=== PATIENT | male | born 1935 | race Caucasian/White ===

== ENCOUNTER 2020-05-02 16:28 | Emergency (ER) | payer MEDICARE, OTHER ==
--- NOTE | 2020-05-02 17:55 | RAD ---
LEFT MIDDLE FINGER THREE VIEWS: 05/02/20 HISTORY: Middle finger laceration. Arthritic changes are present. No fracture or radiopaque foreign bodies. IMPRESSION: No evidence of fracture. POS: OFF
[2020-05-02] MEDS ORDERED: Lidocaine 1% (PF) 30 ML VIAL ONE (17:58)
[2020-05-02] MEDS ORDERED: Bacitracin 1 PK ONE (18:49)
== END 2020-05-02 18:50 | disposition home or self-care (01) ==
LOC: ERS 16:28
DX: S61.213A Laceration without foreign body of left middle finger without damage to nail, initial encounter (principal); I10 Essential (primary) hypertension; E78.00 Pure hypercholesterolemia, unspecified; E10.9 Type 1 diabetes mellitus without complications; Z79.899 Other long term (current) drug therapy; Z79.82 Long term (current) use of aspirin; Z79.84 Long term (current) use of oral hypoglycemic drugs; W23.0XXA Caught, crushed, jammed, or pinched between moving objects, initial encounter
CPT/HCPCS: 12001; J2001

== ENCOUNTER 2022-04-17 14:18 | Inpatient (IN) | payer MEDICARE ==
[~2022-04-17 14:18] MED LIST: Iopamidol-370 76% 500 ML 1 ML ONE
[2022-04-17 15:03] LABS: #Lymphocytes 1.4 thou/uL (1.20-3.40); #Monocytes 0.4 thou/uL (0.11-0.59); #Neutrophils 5.9 thou/uL (1.40-6.50); %Basophils 0.2 % (0.0-1.0); %Eosinophils 0.4 % (0.0-10.0); %Lymphocytes 18.4 % (21.0-51.0); %Monocytes 5.3 % (0.0-10.0); %Neutrophils 75.8 % (42.0-75.0); Hemoglobin 14.2 g/dL (14.0-18.0); Mean Corpuscular HGB CONC 32.5 g/dL (32.0-36.0); Mean Platelet Volume 8.3 fL (7.4-10.4); Platelet Count 251 10x3/uL (130-400); RBC Distribution Width 11.4 % (11.5-14.5); Red Blood Cell (RBC) Count 4.31 mill/uL (4.70-6.10); White Blood Cell (WBC) Count 7.8 10x3/uL (4.8-10.8)
[2022-04-17 15:24] LABS: ALT (SGPT) 12 U/L (8-55); AST (SGOT) 11 U/L (5-34); Albumin 3.6 g/dL (3.4-4.8); Alkaline Phosphatase 95 U/L (40-110); Anion Gap 15 mmol/L (10-20); BUN (Urea Nitrogen) 23 mg/dL (8.4-25.7); Bilirubin, Total 0.5 mg/dL (0.2-1.2); Calc. Creatinine Clearance 0 mL/min (70-130); Calcium 9.3 mg/dL (7.8-10.44); Carbon Dioxide 22 mmol/L (23-31); Chloride 97 mmol/L (98-107); Estimated GFR 59; Globulin 2.6 g/dL (2.4-3.5); Potassium 5.4 mmol/L (3.5-5.1); Protein, Total 6.2 g/dL (5.8-8.1); Sodium 129 mmol/L (136-145)
[2022-04-17 15:32] LABS: Glucose 680 mg/dL (83-110)
[2022-04-17] MEDS ORDERED: Insulin Regular 300 UNITS/3 ML VIAL ONE (15:34)
[2022-04-17 15:54] LABS: Actual Bicarbonate (HCO3v) 23 mEq/L (22-28); Base Excess -4.5 mEq/L (-2.0 to +3.0); Calcium, Ionized (venous) 1.18 mmol/L (1.16-1.32); Chloride (VBG) 97 mmol/L (98-106); Hemoglobin (Hb) 15.5 g/dL (12.6-17.4); Potassium (VBG) 4.98 mmol/L (3.70-5.30); Sodium 131.3 mmol/L (133-146); pH (venous) 7.28 (7.32-7.43)
[2022-04-17 17:44] LABS: Bilirubin Negative (Negative); Blood, Urine Trace (Negative); Clarity Turbid (Clear); Glucose, Urine (Dipstick) Greater than 1000 mg/dL (Negative); Ketone, Urine Negative (Negative); Leukocyte 500 Leu/uL (Negative); Nitrite 1+ (Negative); Protein, Urine (Dipstick) Negative (Neg-Trace); Specific Gravity, Urine 1.033 (1.002-1.036); Squamous Epithelial None Seen HPF (0-3); Urobilinogen Normal mg/dL (Less than 2); WBC/HPF Greater than 50 HPF (0-3); pH, Urine 5.5 (5.0-9.0)
[2022-04-17 17:46] LABS: Bacteria/HPF 1+ HPF (None Seen)
[2022-04-17] MEDS ORDERED: Dextrose 50% Abboject 50 ML SYRINGE SLOW IVP PRN (17:57)
[2022-04-17] MEDS ORDERED: Dextrose 5% in Water 1,000 ML IV PRN (17:57)
[2022-04-17] MEDS ORDERED: Ondansetron ODT 4 MG TAB PO PRN (17:57)
[2022-04-17] MEDS ORDERED: Ondansetron PF 4 MG/2 ML Vial IVP PRN (17:57)
[2022-04-17] MEDS ORDERED: Acetaminophen 325 MG TAB PO PRN (17:57)
[2022-04-17] MEDS ORDERED: RENALLY ADJUST ANTIBIOTICS IVPB PRN (18:01)
[2022-04-17] MEDS: cefTRIAXone\\ROCEPHIN 1 GM in Sodium Chloride 0.9% 100 ML IVPB SCH (19:46)
[2022-04-17] MEDS: Sodium Chloride 0.9% 1,000 ML IV SCH (19:47)
[2022-04-17] MEDS: Metoprolol Tartrate 25 MG TAB PO SCH (20:10)
[2022-04-17] MEDS: glyBURIDE 5 MG TAB PO SCH (20:10)
[2022-04-17] MEDS: Atorvastatin Calcium 20 MG TAB PO SCH (20:10)
[2022-04-17] MEDS: Tamsulosin HCl 0.4 MG CAP PO SCH (20:10)
[2022-04-17] MEDS: HumaLOG 300 UNITS/3 ML VIAL SC PRN (20:13)
[2022-04-17 20:43] LABS: Lactic Acid 1.7 mmol/L (0.5-2.2)
[2022-04-17 21:22] LABS: SARS-CoV-2 NAA Rapid Test Not Detected (NotDetected)
[2022-04-17] MEDS: Phenazopyridine HCl 100 MG TAB PO SCH (21:23)
[2022-04-18] MEDS: HumaLOG 300 UNITS/3 ML VIAL SC PRN ×3 (05:12→21:38)
[2022-04-18 06:54] LABS: Hemoglobin A1c 10.5 % (4.0-6.0)
[2022-04-18 06:55] LABS: #Eosinphils 0.1 thou/uL (0.0-0.7); #Lymphocytes 2.5 thou/uL (1.20-3.40); #Monocytes 0.5 thou/uL (0.11-0.59); #Neutrophils 5.8 thou/uL (1.40-6.50); %Basophils 0.3 % (0.0-1.0); %Eosinophils 1.2 % (0.0-10.0); %Lymphocytes 27.7 % (21.0-51.0); %Monocytes 5.7 % (0.0-10.0); Hemoglobin 13.6 g/dL (14.0-18.0); Mean Corpuscular HGB CONC 34.5 g/dL (32.0-36.0); Mean Corpuscular Hemoglobin 34.1 pg (27.0-31.0); Mean Corpuscular Volume 98.8 fl (78.0-98.0); Mean Platelet Volume 8.3 fL (7.4-10.4); Platelet Count 204 10x3/uL (130-400); RBC Distribution Width 11.3 % (11.5-14.5)
[2022-04-18 07:09] LABS: Anion Gap 11 mmol/L (10-20); BUN (Urea Nitrogen) 15 mg/dL (8.4-25.7); Calc. Creatinine Clearance 62 mL/min (70-130); Calcium 8.6 mg/dL (7.8-10.44); Carbon Dioxide 20 mmol/L (23-31); Chloride 107 mmol/L (98-107); Estimated GFR 90; Glucose 228 mg/dL (83-110); Potassium 3.9 mmol/L (3.5-5.1); Sodium 134 mmol/L (136-145)
[2022-04-18] MEDS: Lisinopril 2.5 MG TAB PO SCH (09:08)
[2022-04-18] MEDS: Tamsulosin HCl 0.4 MG CAP PO SCH ×2 (09:08→21:40)
[2022-04-18] MEDS: glyBURIDE 5 MG TAB PO SCH ×2 (09:09→21:38)
[2022-04-18] MEDS: Dutasteride 0.5 MG CAP PO SCH (09:09)
[2022-04-18] MEDS: Aspirin Chewable 81 MG TAB PO SCH (09:09)
[2022-04-18] MEDS: Metoprolol Tartrate 25 MG TAB PO SCH ×2 (09:09→21:39)
[2022-04-18] MEDS: Insulin Glargine 30 UNITS/0.3 ML VIAL SC SCH (09:10)
[2022-04-18] MEDS: Sodium Chloride 0.9% 1,000 ML IV SCH ×2 (09:10→23:46)
[2022-04-18] MEDS: Phenazopyridine HCl 100 MG TAB PO SCH ×2 (09:10→21:38)
[2022-04-18] MEDS: FLUoxetine HCl 10 MG CAP PO SCH (11:27)
[2022-04-18] MEDS: cefTRIAXone\\ROCEPHIN 1 GM in Sodium Chloride 0.9% 100 ML IVPB SCH (18:24)
[2022-04-18] MEDS: Atorvastatin Calcium 20 MG TAB PO SCH (21:40)
[2022-04-19] MEDS: Insulin Glargine 30 UNITS/0.3 ML VIAL SC SCH (09:48)
[2022-04-19] MEDS: FLUoxetine HCl 10 MG CAP PO SCH (09:48)
[2022-04-19] MEDS: Aspirin Chewable 81 MG TAB PO SCH (09:48)
[2022-04-19] MEDS: Lisinopril 2.5 MG TAB PO SCH (09:48)
[2022-04-19] MEDS: Tamsulosin HCl 0.4 MG CAP PO SCH ×2 (09:48→20:16)
[2022-04-19] MEDS: Dutasteride 0.5 MG CAP PO SCH (09:48)
[2022-04-19] MEDS: glyBURIDE 5 MG TAB PO SCH ×2 (09:48→20:16)
[2022-04-19] MEDS: Metoprolol Tartrate 25 MG TAB PO SCH ×2 (09:48→20:16)
[2022-04-19] MEDS: Phenazopyridine HCl 100 MG TAB PO SCH ×2 (09:48→20:16)
[2022-04-19] MEDS: HumaLOG 300 UNITS/3 ML VIAL SC PRN ×2 (12:23→18:16)
[2022-04-19] MEDS: Sodium Chloride 0.9% 1,000 ML IV SCH (14:05)
[2022-04-19] MEDS: cefTRIAXone\\ROCEPHIN 1 GM in Sodium Chloride 0.9% 100 ML IVPB SCH (18:15)
[2022-04-19] MEDS: Atorvastatin Calcium 20 MG TAB PO SCH (20:16)
[2022-04-20] MEDS: Sodium Chloride 0.9% 1,000 ML IV SCH ×2 (06:40→09:18)
[2022-04-20] MEDS: Metoprolol Tartrate 25 MG TAB PO SCH ×2 (08:33→20:19)
[2022-04-20] MEDS: Phenazopyridine HCl 100 MG TAB PO SCH ×2 (08:33→20:19)
[2022-04-20] MEDS: Dutasteride 0.5 MG CAP PO SCH (08:33)
[2022-04-20] MEDS: Aspirin Chewable 81 MG TAB PO SCH (08:33)
[2022-04-20] MEDS: glyBURIDE 5 MG TAB PO SCH ×2 (08:33→20:19)
[2022-04-20] MEDS: FLUoxetine HCl 10 MG CAP PO SCH (08:33)
[2022-04-20] MEDS: Lisinopril 2.5 MG TAB PO SCH (08:33)
[2022-04-20] MEDS: Tamsulosin HCl 0.4 MG CAP PO SCH ×2 (08:33→20:19)
[2022-04-20 08:37] LABS: #Eosinphils 0.1 thou/uL (0.0-0.7); #Lymphocytes 2.3 thou/uL (1.20-3.40); #Monocytes 0.7 thou/uL (0.11-0.59); #Neutrophils 4.5 thou/uL (1.40-6.50); %Basophils 0.2 % (0.0-1.0); %Eosinophils 0.8 % (0.0-10.0); %Lymphocytes 30.2 % (21.0-51.0); %Monocytes 9.7 % (0.0-10.0); %Neutrophils 59.1 % (42.0-75.0); Hemoglobin 13.4 g/dL (14.0-18.0); Mean Corpuscular HGB CONC 32.2 g/dL (32.0-36.0); Mean Corpuscular Hemoglobin 32.3 pg (27.0-31.0); Platelet Count 222 10x3/uL (130-400); RBC Distribution Width 11.3 % (11.5-14.5); Red Blood Cell (RBC) Count 4.14 mill/uL (4.70-6.10); White Blood Cell (WBC) Count 7.7 10x3/uL (4.8-10.8)
[2022-04-20 09:03] LABS: Anion Gap 11 mmol/L (10-20); BUN (Urea Nitrogen) 9 mg/dL (8.4-25.7); Calc. Creatinine Clearance 67 mL/min (70-130); Calcium 8.4 mg/dL (7.8-10.44); Carbon Dioxide 22 mmol/L (23-31); Chloride 106 mmol/L (98-107); Estimated GFR 92; Glucose 119 mg/dL (83-110); Potassium 3.7 mmol/L (3.5-5.1); Sodium 135 mmol/L (136-145)
[2022-04-20] MEDS: Insulin NPH Human Isophane 100 UNIT/ML (10 ML VIAL) SC SCH (09:18)
[2022-04-20] MEDS: HumaLOG 300 UNITS/3 ML VIAL SC PRN ×3 (12:13→20:20)
[2022-04-20] MEDS: Atorvastatin Calcium 20 MG TAB PO SCH (20:20)
[2022-04-21] MEDS: Tamsulosin HCl 0.4 MG CAP PO SCH ×2 (09:03→21:15)
[2022-04-21] MEDS: FLUoxetine HCl 10 MG CAP PO SCH (09:03)
[2022-04-21] MEDS: Metoprolol Tartrate 25 MG TAB PO SCH ×2 (09:04→21:15)
[2022-04-21] MEDS: Lisinopril 2.5 MG TAB PO SCH (09:04)
[2022-04-21] MEDS: glyBURIDE 5 MG TAB PO SCH ×2 (09:04→21:15)
[2022-04-21] MEDS: Insulin NPH Human Isophane 100 UNIT/ML (10 ML VIAL) SC SCH (09:05)
[2022-04-21] MEDS: Aspirin Chewable 81 MG TAB PO SCH (09:05)
[2022-04-21] MEDS: Phenazopyridine HCl 100 MG TAB PO SCH ×2 (09:05→21:15)
[2022-04-21] MEDS: Dutasteride 0.5 MG CAP PO SCH (09:05)
[2022-04-21] MEDS: HumaLOG 300 UNITS/3 ML VIAL SC PRN ×2 (12:26→18:20)
[2022-04-21] MEDS: Atorvastatin Calcium 20 MG TAB PO SCH (21:15)
[2022-04-22] MEDS: Metoprolol Tartrate 25 MG TAB PO SCH ×2 (09:24→20:34)
[2022-04-22] MEDS: Phenazopyridine HCl 100 MG TAB PO SCH ×2 (09:24→20:34)
[2022-04-22] MEDS: Dutasteride 0.5 MG CAP PO SCH (09:24)
[2022-04-22] MEDS: glyBURIDE 5 MG TAB PO SCH ×2 (09:25→20:34)
[2022-04-22] MEDS: Lisinopril 2.5 MG TAB PO SCH (09:26)
[2022-04-22] MEDS: Aspirin Chewable 81 MG TAB PO SCH (09:26)
[2022-04-22] MEDS: Tamsulosin HCl 0.4 MG CAP PO SCH ×2 (09:26→20:34)
[2022-04-22] MEDS: FLUoxetine HCl 10 MG CAP PO SCH (09:27)
[2022-04-22] MEDS: Insulin NPH Human Isophane 100 UNIT/ML (10 ML VIAL) SC SCH (09:27)
[2022-04-22] MEDS: HumaLOG 300 UNITS/3 ML VIAL SC PRN ×3 (09:28→21:30)
[2022-04-22] MEDS: Atorvastatin Calcium 20 MG TAB PO SCH (20:34)
[2022-04-23] MEDS: HumaLOG 300 UNITS/3 ML VIAL SC PRN ×4 (06:04→21:50)
[2022-04-23] MEDS: glyBURIDE 5 MG TAB PO SCH ×2 (09:28→20:24)
[2022-04-23] MEDS: Tamsulosin HCl 0.4 MG CAP PO SCH ×2 (09:28→20:24)
[2022-04-23] MEDS: Phenazopyridine HCl 100 MG TAB PO SCH ×2 (09:28→20:25)
[2022-04-23] MEDS: Metoprolol Tartrate 25 MG TAB PO SCH ×2 (09:28→20:24)
[2022-04-23] MEDS: Aspirin Chewable 81 MG TAB PO SCH (09:28)
[2022-04-23] MEDS: Insulin NPH Human Isophane 100 UNIT/ML (10 ML VIAL) SC SCH (09:28)
[2022-04-23] MEDS: Dutasteride 0.5 MG CAP PO SCH (09:28)
[2022-04-23] MEDS: FLUoxetine HCl 10 MG CAP PO SCH (09:28)
[2022-04-23] MEDS: Lisinopril 2.5 MG TAB PO SCH (09:29)
[2022-04-23 10:37] LABS: #Basophils 0.1 thou/uL (0.0-0.2); #Eosinphils 0.2 thou/uL (0.0-0.7); #Lymphocytes 2.4 thou/uL (1.20-3.40); #Monocytes 0.8 thou/uL (0.11-0.59); #Neutrophils 5.1 thou/uL (1.40-6.50); %Basophils 0.7 % (0.0-1.0); %Eosinophils 2.9 % (0.0-10.0); %Lymphocytes 27.9 % (21.0-51.0); %Monocytes 9.2 % (0.0-10.0); %Neutrophils 59.4 % (42.0-75.0); Hemoglobin 13.8 g/dL (14.0-18.0); Mean Corpuscular HGB CONC 32.4 g/dL (32.0-36.0); Mean Corpuscular Hemoglobin 32.5 pg (27.0-31.0); Mean Platelet Volume 8.1 fL (7.4-10.4); Platelet Count 258 10x3/uL (130-400); RBC Distribution Width 11.5 % (11.5-14.5); Red Blood Cell (RBC) Count 4.25 mill/uL (4.70-6.10); White Blood Cell (WBC) Count 8.6 10x3/uL (4.8-10.8)
[2022-04-23 11:05] LABS: Anion Gap 11 mmol/L (10-20); BUN (Urea Nitrogen) 17 mg/dL (8.4-25.7); Calc. Creatinine Clearance 53 mL/min (70-130); Calcium 8.9 mg/dL (7.8-10.44); Carbon Dioxide 26 mmol/L (23-31); Chloride 100 mmol/L (98-107); Estimated GFR 85; Glucose 275 mg/dL (83-110); Sodium 133 mmol/L (136-145)
[2022-04-23] MEDS: Atorvastatin Calcium 20 MG TAB PO SCH (20:25)
[2022-04-24] MEDS: Phenazopyridine HCl 100 MG TAB PO SCH (07:49)
[2022-04-24] MEDS: Aspirin Chewable 81 MG TAB PO SCH (07:49)
[2022-04-24] MEDS: Dutasteride 0.5 MG CAP PO SCH (07:49)
[2022-04-24] MEDS: FLUoxetine HCl 10 MG CAP PO SCH (07:49)
[2022-04-24] MEDS: Metoprolol Tartrate 25 MG TAB PO SCH (07:50)
[2022-04-24] MEDS: glyBURIDE 5 MG TAB PO SCH (07:50)
[2022-04-24] MEDS: Tamsulosin HCl 0.4 MG CAP PO SCH (07:50)
[2022-04-24] MEDS: Lisinopril 2.5 MG TAB PO SCH (07:50)
[2022-04-24] MEDS: Insulin NPH Human Isophane 100 UNIT/ML (10 ML VIAL) SC SCH (07:51)
[2022-04-24 13:13] VITALS: BP 113/65; TEMP 97.9
== END 2022-04-24 12:22 | disposition swing bed (61) | DRG 638 ==
LOC: ERS 14:18 → SURG A 17:53 → OBSVTOIN 04-19 17:41
PROVIDERS: ADMIT Internal Medicine; ATTEND Internal Medicine
DX: E10.65 Type 1 diabetes mellitus with hyperglycemia (principal); E87.1 Hypo-osmolality and hyponatremia; K86.1 Other chronic pancreatitis; N39.0 Urinary tract infection, site not specified; I10 Essential (primary) hypertension; F03.90 Unspecified dementia, unspecified severity, without behavioral disturbance, psychotic disturbance, mood disturbance, and anxiety; E87.6 Hypokalemia; E78.00 Pure hypercholesterolemia, unspecified; Z20.822 Contact with and (suspected) exposure to COVID-19; Z79.82 Long term (current) use of aspirin; Z79.899 Other long term (current) drug therapy; Z79.84 Long term (current) use of oral hypoglycemic drugs; Z79.4 Long term (current) use of insulin; Z90.49 Acquired absence of other specified parts of digestive tract; Z98.890 Other specified postprocedural states
CPT/HCPCS: 36415; 36416; 71045; 74177; 80048; 80053; 81003; 81015; 82010; 82805; 82947; 83036; 83605; 85025; 87077; 87086; 87186; 87811; 93005; 96374; J0696; J1815; J3490; J7050; Q9967; U0002